=== PATIENT | female | born 2000 | race Caucasian/White ===

== ENCOUNTER → 2021-01-09 | Outpatient (REF) | payer OTHER | LOC: M LAB REF 11:38 | PROVIDERS: ATTEND Physician Assistant Medical | DX: Z11.3 Encounter for screening for infections with a predominantly sexual mode of transmission (principal) ==

== ENCOUNTER 2021-01-16 13:07 | Emergency (ER) | payer OTHER ==
[~2021-01-16] VITALS: Ht 154.9 cm; Wt 60.4 kg
[2021-01-16 15:28] LABS: BASO % 0.5 % (0.0-1.0); EOS # 0.1 10^3/uL (0.0-0.5); EOS % 0.9 % (0.0-3.0); HEMATOCRIT 44.2 % (36.0-47.0); HEMOGLOBIN 14.6 g/dl (12.0-15.5); LYMPH # 2.8 10^3/uL (1.5-5.0); LYMPH % 32.4 % (24.0-44.0); MEAN CORPUSCULAR HEMOGLOBIN 30.4 pg (27.0-33.0); MEAN CORPUSCULAR VOLUME 92.1 fl (80.0-96.0); MONO # 0.5 10^3/uL (0.0-0.8); MONO % 5.5 % (2.0-8.0); NEUTROPHILS # 5.3 10^3/uL (1.5-8.5); NEUTROPHILS % 60.5 % (36.0-66.0); PLATELET COUNT, AUTOMATED 253 10^3/uL (150-450); WHITE BLOOD COUNT 8.7 10^3/uL (4.0-10.0)
[2021-01-16 16:10] LABS: BLOOD UREA NITROGEN 11 MG/DL (7-18); CALCIUM LEVEL 9.7 MG/DL (8.5-10.1); CARBON DIOXIDE LEVEL 27 MEQ/L (21-32); CHLORIDE LEVEL 106 MEQ/L (98-107); CREATININE FOR GFR 0.67 MG/DL (0.55-1.30); GLUCOSE, FASTING 80 MG/DL (70-100); HCG, SERUM QUANTITATIVE < 1.0 MIU/ML; POTASSIUM SERUM 3.8 MEQ/L (3.5-5.1); SODIUM LEVEL 138 MEQ/L (136-145)
--- NOTE | 2021-01-16 17:21 | REP ---
INDICATION: heavy vaginal bleeding x 2 months. COMPARISON: None TECHNIQUE: Transvesical and transvaginal scanning FINDINGS: Uterus measures 5 x 3 x 3 cm. The parenchymal echo pattern is within normal limits. The endometrial echo complex measures between 2 and 5 mm in its greatest thickness. There is no free fluid in cul-de-sac. Right ovary measures 2.5 x 1.9 x 2 cm and is within normal limits. Left ovary measures 2.4 x 1.8 x 2.5 cm and is within normal limits. Urinary bladder measures 7 x 3 x 8 cm. IMPRESSION: Pelvic ultrasound is within normal limits. <Electronically signed by Tye Celeste > 01/16/21 [id number]
[2021-01-16 18:16] VITALS: BP 111/73
== END 2021-01-16 18:30 | disposition home or self-care (01) ==
LOC: M ED 13:07
DX: N93.8 Other specified abnormal uterine and vaginal bleeding (principal); R10.2 Pelvic and perineal pain; F17.200 Nicotine dependence, unspecified, uncomplicated; Z79.3 Long term (current) use of hormonal contraceptives

== ENCOUNTER → 2021-06-14 | Outpatient (REF) | payer OTHER | LOC: M LAB REF 21:29 | PROVIDERS: ATTEND Physician Assistant | DX: N39.0 Urinary tract infection, site not specified (principal) ==

== ENCOUNTER 2022-03-25 18:26 | Emergency (ER) | payer OTHER ==
[~2022-03-25] VITALS: Ht 154.9 cm; Wt 63.5 kg
[2022-03-25 18:27] VITALS: BP 127/68
== END 2022-03-25 20:21 | disposition left against medical advice (07) ==
LOC: M ED 18:26
DX: Z53.29 Procedure and treatment not carried out because of patient's decision for other reasons (principal)

== ENCOUNTER 2023-02-09 00:35 | Emergency (ER) | payer OTHER ==
[2023-02-09 01:13] LABS: APPEARANCE, URINE CLEAR (CLEAR); BACTERIA, URINE AUTO NEGATIVE (NEGATIVE); BILIRUBIN, URINE AUTO NEGATIVE (NEGATIVE); BLOOD, URINE BLOOD NEGATIVE (NEGATIVE); COLOR, URINE STRAW (YELLOW); GLUCOSE, URINE (UA) AUTO NEGATIVE (NEGATIVE); KETONE, URINE AUTO NEGATIVE (NEGATIVE); LEUKOCYTE ESTERASE, URINE AUTO TRACE (NEGATIVE); NITRITE, URINE AUTO NEGATIVE (NEGATIVE); PROTEIN, URINE AUTO NEGATIVE (NEGATIVE); RBC, URINE AUTO 1 /HPF (0-3); SPECIFIC GRAVITY URINE AUTO 1.017 (1.002-1.035); SQUAMOUS EPITHELIAL CELL UR AU 4 /HPF (0-6); UROBILINOGEN, URINE AUTO 0.2 mg/dL (0.0-2.0); WBC, URINE AUTO 1 /HPF (0-3)
[2023-02-09] MEDS ORDERED: KETOROLAC 60MG 2ML VIAL IM ONE (01:55)
[2023-02-09 02:30] LABS: GC DNA AMPLIFICATION NEGATIVE (NEGATIVE)
[2023-02-09] MEDS ORDERED: METR-265 PO (05:24)
[2023-02-09] MEDS ORDERED: metroNIDAZOLE (FLAGYL) 500MG TABLET PO ONE (05:25)
[2023-02-09 05:34] VITALS: BP 141/74; TEMP 98.4; O2SAT 98
== END 2023-02-09 05:37 | disposition home or self-care (01) ==
LOC: M ED 00:35
DX: N76.0 Acute vaginitis (principal)
CPT/HCPCS: 76856; 81001; 87086; 87210; 87661; 87810; 87850; 93976; 96372; 99283; J1885

== ENCOUNTER 2023-07-03 18:56 | Emergency (ER) | payer OTHER ==
[~2023-07-03] VITALS: Ht 154.9 cm; Wt 68.4 kg
[~2023-07-03 18:56] MED LIST: MACR100C43 PO; METR-265 PO; MULTTAB20 PO; ONDA4TAB6 PO
[2023-07-03] MEDS ORDERED: MELA3TAB49 PO (20:29)
[2023-07-03] MEDS ORDERED: NS 1,000 ML IV ONE (21:10)
[2023-07-03 21:54] LABS: BASO # 0.1 10^3/uL (0.0-0.2); BASO % 0.4 % (0.0-1.0); EOS # 0.1 10^3/uL (0.0-0.5); EOS % 0.5 % (0.0-3.0); HEMATOCRIT 34.6 % (36.0-47.0); HEMOGLOBIN 11.6 g/dl (12.0-15.5); LYMPH # 2.8 10^3/uL (1.5-5.0); LYMPH % 21.6 % (24.0-44.0); MEAN CORPUSCULAR HEMOGLOBIN 30.6 pg (27.0-33.0); MEAN CORPUSCULAR HGB CONC 33.5 g/dl (32.0-36.5); MEAN CORPUSCULAR VOLUME 91.3 fl (80.0-96.0); MONO # 0.7 10^3/uL (0.0-0.8); MONO % 5.6 % (2.0-8.0); NEUTROPHILS # 9.3 10^3/uL (1.5-8.5); NEUTROPHILS % 71.5 % (36.0-66.0); PLATELET COUNT, AUTOMATED 241 10^3/uL (150-450); RED BLOOD COUNT 3.79 10^6/uL (4.00-5.40)
[2023-07-03] MEDS ORDERED: NITR1CAP11 PO (22:50)
[2023-07-03 23:03] VITALS: BP 104/62; TEMP 97.5; O2SAT 99
== END 2023-07-03 22:58 | disposition home or self-care (01) ==
LOC: M ED 18:56
DX: O26.892 Other specified pregnancy related conditions, second trimester (principal); R55 Syncope and collapse; O23.92 Unspecified genitourinary tract infection in pregnancy, second trimester; Z79.810 Long term (current) use of selective estrogen receptor modulators (SERMs); Z79.899 Other long term (current) drug therapy

== ENCOUNTER 2023-09-30 00:18 | Outpatient (CLI) | payer OTHER ==
[~2023-09-30] VITALS: Ht 154.9 cm; Wt 72.1 kg
[~2023-09-30 00:18] MED LIST changes: +MELA3TAB49 PO; +NITR1CAP11 PO
[2023-09-30 00:31] VITALS: BP 117/70
[2023-09-30] MEDS ORDERED: HOME MED LIST COMPLETE! XX SCH (00:55)
[2023-09-30] MEDS ORDERED: FAMO20TA PO (00:55)
[2023-09-30] MEDS ORDERED: TUMS500C PO (00:57)
== END 2023-09-30 02:11 | disposition home or self-care (01) ==
LOC: M LDO 00:18
PROVIDERS: ATTEND Obstetrics & Gynecology
DX: O99.893 Other specified diseases and conditions complicating puerperium (principal); N93.0 Postcoital and contact bleeding; Z3A.37 37 weeks gestation of pregnancy
CPT/HCPCS: 59025; 76815; G0463

== ENCOUNTER 2023-10-12 08:55 | Outpatient (CLI) | payer OTHER ==
[~2023-10-12] VITALS: Ht 154.9 cm; Wt 73.9 kg
[~2023-10-12 08:55] MED LIST changes: +FAMO20TA PO; +TUMS500C PO
[2023-10-12 09:26] VITALS: BP 107/64
[2023-10-13] MEDS ORDERED: ACET-897 PO (12:54)
== END 2023-10-12 10:58 | disposition home or self-care (01) ==
LOC: M LDO 08:55
PROVIDERS: ATTEND Obstetrics & Gynecology
DX: O47.1 False labor at or after 37 completed weeks of gestation (principal); Z3A.39 39 weeks gestation of pregnancy; O99.824 Streptococcus B carrier state complicating childbirth; Z79.899 Other long term (current) drug therapy
CPT/HCPCS: 59025; 76815; G0463

== ENCOUNTER 2023-10-13 12:30 | Inpatient (IN) | payer OTHER ==
[~2023-10-13] VITALS: Ht 154.9 cm; Wt 73.7 kg
[2023-10-13] VITALS (13 sets, daily range): BP systolic 112–135; BP diastolic 54–77
[2023-10-13] MEDS ORDERED: ACET-897 PO (12:54)
[2023-10-13] MEDS ORDERED: OXYTOCIN DRIP 30 UNITS in IV 1 EA IV PRN (14:40)
[2023-10-13] MEDS ORDERED: CARBOPROST TROMETHAMINE 250 MCG/ML AMP IM PRN (14:40)
[2023-10-13] MEDS ORDERED: TRANEXAMIC ACID INJection 1,000 MG in NS 100 ML IV PRN (14:40)
[2023-10-13] MEDS ORDERED: LIDOCAINE 1% MDV 20ML VIAL INFIL PRN (14:40)
[2023-10-13] MEDS ORDERED: METHYLERGONOVINE MALEATE 0.2MG/ML 1ML VIAL IM PRN (14:40)
[2023-10-13] MEDS: PENICILLIN G POTASSIUM 5 MU IV 5 MU in D5W MINI-BAG PLUS 100 ML IV STA (15:20)
[2023-10-13] MEDS: LR 1,000 ML IV SCH (15:21)
[2023-10-13 15:27] LABS: HEMATOCRIT 36.8 % (36.0-47.0); HEMOGLOBIN 12.4 g/dl (12.0-15.5); MEAN CORPUSCULAR HEMOGLOBIN 28.8 pg (27.0-33.0); MEAN CORPUSCULAR HGB CONC 33.7 g/dl (32.0-36.5); MEAN CORPUSCULAR VOLUME 85.4 fl (80.0-96.0); PLATELET COUNT, AUTOMATED 215 10^3/uL (150-450); RED BLOOD COUNT 4.31 10^6/uL (4.00-5.40); WHITE BLOOD COUNT 14.2 10^3/uL (4.0-10.0)
[2023-10-13] MEDS: PEN G POT 3,000,000 UNIT/50 ML 3,000,000 UNIT in IV 1 EA IV SCH (19:45)
[2023-10-13] MEDS: OXYTOCIN DRIP 30 UNITS in IV 1 EA IV SCH (20:31)
[2023-10-13] MEDS: BUTORPHANOL 2 MG/ML 1ML VIAL IV ONE (22:07)
[2023-10-13] MEDS: PROMETHAZINE 25MG/ML 1ML VIAL IV ONE (22:07)
[2023-10-13] MEDS: LACTATED RINGER'S 1000 ML IV STA (23:51)
[2023-10-14] VITALS (37 sets, daily range): BP systolic 92–138; BP diastolic 51–72; TEMP 98.7; O2SAT 96–97
[2023-10-14] MEDS ORDERED: ePHEDrine SULFATE 25 MG/5 ML(5MG/ML) SYRINGE IVP PRN (00:30)
[2023-10-14] MEDS ORDERED: LR 500 ML IV PRN ×2 (00:30)
[2023-10-14] MEDS ORDERED: NALOXONE INJ 0.4MG/1ML VIAL IV PRN ×4 (00:30→14:25)
[2023-10-14] MEDS ORDERED: ONDANSETRON 4MG 2ML VIAL IV PRN ×4 (00:30→14:25)
[2023-10-14] MEDS ORDERED: diphenhydrAMINE 50MG/ML VIAL IV PRN ×2 (00:30)
[2023-10-14] MEDS ORDERED: EPIDURAL/PCA KEYS XX PRN ×2 (00:30)
[2023-10-14] MEDS: FENTANYL/ROPIVACAINE/NACL BAG 100 ML EPIDURAL SCH (00:37)
[2023-10-14] MEDS: ePHEDrine SULFATE 25 MG/5 ML(5MG/ML) SYRINGE IVP PRN (02:18)
[2023-10-14] MEDS: LR 1,000 ML IV SCH ×2 (07:40→16:51)
[2023-10-14] MEDS: ceFAZolin SOD 2 GM in IV 1 EA IV ONE (12:46)
[2023-10-14] MEDS: AZITHROMYCIN INJ 500 MG, VIAL MATE ADAPTER 1 EACH in NS 250 ML IV ONE (12:46)
[2023-10-14] MEDS: BICITRA 30ML SOLN UDC PO ONE (12:46)
[2023-10-14] MEDS ORDERED: ONDANSETRON 4MG 2ML VIAL As Ordered ONE (13:19)
[2023-10-14] MEDS ORDERED: PHENYLephrine 500MCG 5ML (100MCG/ML) SYRINGE As Ordered ONE (13:19)
[2023-10-14] MEDS ORDERED: OXYTOCIN 30UNITS IN 0.9% NaCl 500ML IV BAG As Ordered ONE (13:19)
[2023-10-14] MEDS ORDERED: OXYTOCIN INJ 10UNITS/ML 1ML VIAL As Ordered ONE (13:19)
[2023-10-14] MEDS ORDERED: LIDOCAINE 2% W/EPINEPHRINE 20ML VIAL **PRES FREE As Ordered ONE (13:19)
[2023-10-14 13:27] LABS: CORD GAS ABE A -7.2; CORD GAS HCO3 A 21.3 MMOL/L; CORD GAS O2 SAT A 51.4 %; CORD GAS PCO2 A 53.4 mmHg; CORD GAS PH A 7.218 UNITS; CORD GAS PO2 A 23.9 mmHg; CORD GAS SBC A 17.6 MMOL/L; CORD GAS TCO2 A 22.9 MMOL/L
[2023-10-14] MEDS ORDERED: MORPHINE PRES-FREE INJ 10 MG/10 ML VIAL As Ordered ONE (13:29)
[2023-10-14 13:31] LABS: CORD GAS ABE V -6.5; CORD GAS HCO3 V 19.3 MMOL/L; CORD GAS O2 SAT V 51.6 %; CORD GAS PCO2 V 39.5 mmHg; CORD GAS PH V 7.306 UNITS; CORD GAS PO2 V 21.4 mmHg; CORD GAS SBC V 18.1 MMOL/L; CORD GAS TCO2 V 20.5 MMOL/L
[2023-10-14] MEDS ORDERED: KETOROLAC 60MG 2ML VIAL As Ordered ONE (13:44)
[2023-10-14] MEDS ORDERED: fentaNYL 100 MCG/2 ML INJECTION As Ordered ONE (13:46)
[2023-10-14] MEDS ORDERED: propofoL 200 MG/20 ML VIAL As Ordered ONE (13:49)
[2023-10-14] MEDS ORDERED: SIMETHICONE 80MG CHEW TAB PO PRN (14:05)
[2023-10-14] MEDS ORDERED: oxyCODONE 5MG TAB PO PRN ×2 (14:05→14:25)
[2023-10-14] MEDS ORDERED: METHYLERGONOVINE MALEATE 0.2 MG TAB PO PRN (14:05)
[2023-10-14] MEDS ORDERED: MOM 30ML SUSPENSION UDC PO PRN (14:05)
[2023-10-14] MEDS ORDERED: MORPHINE 2 MG/ML 1ML VIAL IV PRN (14:05)
[2023-10-14] MEDS ORDERED: METOCLOPRAMIDE INJ 10MG/2ML VIAL IV PRN ×2 (14:05→14:25)
[2023-10-14] MEDS ORDERED: fentaNYL 100 MCG/2 ML INJECTION IV PRN (14:25)
[2023-10-14] MEDS ORDERED: **NOTE PATIENT COMMENT** MISC XX SCH (14:25)
[2023-10-14] MEDS ORDERED: MEPERIDINE 25 MG/ML 1ML VIAL IV PRN (14:25)
[2023-10-14] MEDS ORDERED: HYDROMORPHONE HCL 0.5 MG/ 0.5 ML SYRINGE IV PRN (14:25)
[2023-10-14] MEDS: SLF 3 ML SYR IV SCH (14:25)
[2023-10-14] MEDS: ACETAMINOPHEN 500 MG TAB PO SCH (19:52)
[2023-10-14] MEDS: KETOROLAC 30 MG/ML 1ML VIAL IV SCH (19:52)
[2023-10-15] MEDS: diphenhydrAMINE 50MG/ML VIAL IV PRN (02:04)
[2023-10-15 07:21] LABS: HEMATOCRIT 25.3 % (36.0-47.0); MEAN CORPUSCULAR HEMOGLOBIN 28.6 pg (27.0-33.0); MEAN CORPUSCULAR HGB CONC 32.8 g/dl (32.0-36.5); MEAN CORPUSCULAR VOLUME 87.2 fl (80.0-96.0); PLATELET COUNT, AUTOMATED 137 10^3/uL (150-450); WHITE BLOOD COUNT 10.1 10^3/uL (4.0-10.0)
[2023-10-15 07:29] LABS: HEMOGLOBIN 8.3 g/dl (12.0-15.5)
[2023-10-15] MEDS: PRENATAL VITAMINS CHEWABLE TABLET PO SCH (07:37)
[2023-10-15] MEDS: diphenhydrAMINE 25MG CAP PO ONE (07:37)
[2023-10-15] MEDS: DOCUSATE SODIUM 100MG CAPSULE PO PRN (07:37)
[2023-10-15 10:00] VITALS: BP 117/55; O2SAT 98
[2023-10-15] MEDS: RHOGAM 300MCG (1500IU) INJ IM SCH (13:34)
[2023-10-15 14:00] VITALS: BP 118/67; O2SAT 98
[2023-10-15] MEDS: IBUPROFEN 800 MG TAB PO SCH (15:36)
[2023-10-15 18:00] VITALS: BP 120/59; O2SAT 98
[2023-10-15 22:00] VITALS: BP 115/54; O2SAT 98
[2023-10-16 02:00] VITALS: BP 128/58; O2SAT 100
[2023-10-16 05:58] VITALS: BP 117/60; O2SAT 100
[2023-10-16] MEDS: MEASLES,MUMPS,RUBELLA VACCINE INJ (MMR-II) SC.IMMUN ONE (09:02)
[2023-10-16] MEDS: oxyCODONE 5MG TAB PO PRN (10:22)
== END 2023-10-16 16:00 | disposition home or self-care (01) | DRG 773 ==
LOC: M LDO 12:30 → M LDI 14:46 → M OBS 10-14 16:10
PROVIDERS: ADMIT Advanced Practice Midwife; ATTEND Advanced Practice Midwife
PROC: 10D00Z1 Extraction of Products of Conception, Low, Open Approach (ICD-10-PCS; principal; 2023-10-14 13:00)
DX: O32.4XX0 Maternal care for high head at term, not applicable or unspecified (principal); Z37.0 Single live birth; Z3A.39 39 weeks gestation of pregnancy; O99.824 Streptococcus B carrier state complicating childbirth; O36.0190 Maternal care for anti-D [Rh] antibodies, unspecified trimester, not applicable or unspecified

== ENCOUNTER 2025-04-25 10:09 | Outpatient (CLI) | payer OTHER ==
[~2025-04-25] VITALS: Ht 154.9 cm; Wt 65.4 kg
[~2025-04-25 10:09] MED LIST changes: +ACET-897 PO; +ACET1TAB55 PO; +NAPR-837 PO; +NITR100C3 PO; -NITR1CAP11 PO; +ONDA-282 PO; -ONDA4TAB6 PO
[2025-04-25 10:34] VITALS: BP 97/60
[2025-04-25 10:35] VITALS: BP 102/61
[2025-04-25 10:37] VITALS: BP 103/60
[2025-04-25 10:56] LABS: APPEARANCE, URINE TURBID (CLEAR); BACTERIA, URINE AUTO 2+ (NEGATIVE); BILIRUBIN, URINE AUTO NEGATIVE (NEGATIVE); BLOOD, URINE BLOOD NEGATIVE (NEGATIVE); GLUCOSE, URINE (UA) AUTO 1+ mg/dL (NEGATIVE); KETONE, URINE AUTO TRACE mg/dL (NEGATIVE); LEUKOCYTE ESTERASE, URINE AUTO 3+ (NEGATIVE); MUCUS, URINE SMALL (NEGATIVE); NITRITE, URINE AUTO NEGATIVE (NEGATIVE); PROTEIN, URINE AUTO 3+ mg/dL (NEGATIVE); RBC, URINE AUTO 7 /HPF (0-3); SPECIFIC GRAVITY URINE AUTO 1.024 (1.002-1.035); SQUAMOUS EPITHELIAL CELL UR AU 61 /HPF (0-6); UROBILINOGEN, URINE AUTO 0.2 mg/dL (0.0-2.0); WBC, URINE AUTO TNTC /HPF (0-3)
[2025-04-25 11:05] LABS: BASO # 0.0 10^3/uL (0.0-0.2); BASO % 0.3 % (0.0-1.0); EOS # 0.0 10^3/uL (0.0-0.5); EOS % 0.4 % (0.0-3.0); LYMPH # 1.8 10^3/uL (1.5-5.0); LYMPH % 17.0 % (24.0-44.0); MONO # 0.6 10^3/uL (0.0-0.8); MONO % 5.3 % (2.0-8.0); NEUTROPHILS # 8.1 10^3/uL (1.5-8.5); NEUTROPHILS % 76.7 % (36.0-66.0); PLATELET COUNT, AUTOMATED 233 10^3/uL (150-450)
[2025-04-25 11:29] LABS: ALT/SGPT 10 U/L (7.0-40); AST/SGOT 13 U/L (<34); CALCIUM LEVEL 8.2 MG/DL (8.5-10.1); CARBON DIOXIDE LEVEL 24 MMOL/L (20-31); CHLORIDE LEVEL 103 MMOL/L (98-107); CREATININE FOR GFR 0.60 MG/DL (0.55-1.30); GLOMERULAR FILTRATION RATE > 90.0 (>60); IRON (FE) 37 UG/DL (50-170); POTASSIUM SERUM 3.7 MMOL/L (3.5-5.1); SODIUM LEVEL 140 MMOL/L (136-145)
[2025-04-25 12:47] LABS: HIV 1&2 SCREEN NEGATIVE (NEGATIVE)
[2025-04-25] MEDS ORDERED: FERR324T21 PO (13:28)
[2025-04-25] MEDS ORDERED: DSS100CA PO (13:28)
[2025-04-25] MEDS: LR 1,000 ML IV ONE (13:46)
[2025-04-25] MEDS: RHOGAM 300MCG (1500IU) INJ IM ONE (13:47)
[2025-04-25 14:11] VITALS: BP 103/51
== END 2025-04-25 15:30 | disposition home or self-care (01) ==
LOC: M LDO 10:09
PROVIDERS: ATTEND Advanced Practice Midwife
DX: O26.893 Other specified pregnancy related conditions, third trimester (principal); O34.211 Maternal care for low transverse scar from previous cesarean delivery; O99.013 Anemia complicating pregnancy, third trimester; O99.343 Other mental disorders complicating pregnancy, third trimester; O99.333 Smoking (tobacco) complicating pregnancy, third trimester; O99.815 Abnormal glucose complicating the puerperium; F41.9 Anxiety disorder, unspecified; R55 Syncope and collapse; F17.210 Nicotine dependence, cigarettes, uncomplicated; D50.9 Iron deficiency anemia, unspecified; Z3A.29 29 weeks gestation of pregnancy; Z67.91 Unspecified blood type, Rh negative
CPT/HCPCS: 36415; 59025; 80053; 81001; 82728; 82950; 83540; 85025; 86780; 86850; 86900; 86901; 87389; 96372; G0463; J2790

== ENCOUNTER → 2025-04-29 | Outpatient (CLI) | payer OTHER ==
[~2025-04-29] MED LIST changes: +DSS100CA PO; +FERR324T21 PO
== END ==
LOC: M LAB 07:29
PROVIDERS: ATTEND Advanced Practice Midwife
DX: O99.810 Abnormal glucose complicating pregnancy (principal); Z3A.00 Weeks of gestation of pregnancy not specified

== ENCOUNTER → 2025-05-16 | Outpatient (CLI) | payer OTHER ==
[2025-05-16 13:52] LABS: PLATELET COUNT, AUTOMATED 245 10^3/uL (150-450)
== END ==
LOC: M PLALAB 09:43
PROVIDERS: ATTEND Obstetrics & Gynecology
DX: O99.019 Anemia complicating pregnancy, unspecified trimester (principal)

== ENCOUNTER 2025-05-20 09:13 | Outpatient (CLI) | payer OTHER ==
[~2025-05-20] VITALS: Ht 154.9 cm; Wt 65.7 kg
[2025-05-20 09:33] VITALS: BP 110/62; O2SAT 100
[2025-05-20 10:16] VITALS: BP 104/55; O2SAT 100
[2025-05-20 10:23] VITALS: BP 108/59; O2SAT 100
== END 2025-05-20 12:00 | disposition home or self-care (01) ==
LOC: M LDO 09:13
PROVIDERS: ATTEND Advanced Practice Midwife
DX: O26.893 Other specified pregnancy related conditions, third trimester (principal); O99.013 Anemia complicating pregnancy, third trimester; O99.343 Other mental disorders complicating pregnancy, third trimester; R42 Dizziness and giddiness; D50.9 Iron deficiency anemia, unspecified; F41.9 Anxiety disorder, unspecified; Z3A.33 33 weeks gestation of pregnancy
CPT/HCPCS: 59025; G0463

== ENCOUNTER 2025-06-09 05:39 | Inpatient (IN) | payer OTHER ==
[~2025-06-09] VITALS: Ht 154.9 cm; Wt 66.7 kg
[2025-06-09] MEDS ORDERED: DOCU100C16 PO (07:50)
[2025-06-09] MEDS ORDERED: FERR32TA PO (07:50)
[2025-06-09] MEDS ORDERED: SERT50TA29 PO (07:50)
[2025-06-09] MEDS ORDERED: ONDA-282 PO (09:38)
[2025-06-28] MEDS: LR 1,000 ML IV SCH (23:45)
[2025-06-29] VITALS (11 sets, daily range): BP systolic 99–120; BP diastolic 53–68; TEMP 97; O2SAT 97–98
[2025-06-29] MEDS ORDERED: TUMS500C PO (05:51)
[2025-06-29] MEDS: LACTATED RINGER'S 1000 ML IV STA (05:52)
[2025-06-29] MEDS ORDERED: HOME MED LIST COMPLETE! XX SCH (05:55)
[2025-06-29 06:08] LABS: PLATELET COUNT, AUTOMATED 240 10^3/uL (150-450)
[2025-06-29 07:11] LABS: HIV 1&2 SCREEN NEGATIVE (NEGATIVE)
[2025-06-29 07:18] LABS: HEPATITIS C VIRUS ABY INDEX < 0.02 INDEX (<0.8)
[2025-06-29] MEDS: ceFAZolin SODIUM 2 GM in DEXTROSE 5% (D5W) ADV/MINI-BAG 50 ML IV ONE (07:24)
[2025-06-29] MEDS: BICITRA 30 ML SOLN UDC PO ONE (07:24)
[2025-06-29] MEDS ORDERED: MORPHINE PRES-FREE INJ 10 MG/10 ML VIAL As Ordered ONE (07:54)
[2025-06-29] MEDS ORDERED: OXYTOCIN 30UNITS IN 0.9% NaCl 500ML IV BAG IV ONE (07:54)
[2025-06-29] MEDS ORDERED: ONDANSETRON 4MG/2ML VIAL As Ordered ONE (07:57)
[2025-06-29] MEDS ORDERED: GLYCOPYRROLATE INJ 0.2 MG/ML 2 ML VIAL As Ordered ONE (08:02)
[2025-06-29] MEDS ORDERED: KETOROLAC 30 MG/ML 1 ML VIAL As Ordered ONE (08:15)
[2025-06-29] MEDS ORDERED: METHYLERGONOVINE MALEATE 0.2 MG/ML 1 ML VIAL IM PRN (08:50)
[2025-06-29] MEDS ORDERED: PERCOCET 5MG/325MG TAB PO PRN (08:50)
[2025-06-29] MEDS ORDERED: ANUSOL HC CREAM 30 GM TOP PRN (08:50)
[2025-06-29] MEDS ORDERED: CALCIUM CARBONATE 500 MG CHEW U/D PO PRN (08:50)
[2025-06-29] MEDS ORDERED: ONDANSETRON 4MG/2ML VIAL IV PRN ×2 (08:50→09:05)
[2025-06-29] MEDS: LR 1,000 ML IV SCH ×2 (08:50→09:05)
[2025-06-29] MEDS ORDERED: MORPHINE 4 MG/ML 1 ML VIAL IV PRN (08:50)
[2025-06-29] MEDS ORDERED: SIMETHICONE 80MG CHEW TAB PO PRN (08:50)
[2025-06-29] MEDS ORDERED: IBUP80TA PO (08:59)
[2025-06-29] MEDS ORDERED: COLA100C5 PO (08:59)
[2025-06-29] MEDS ORDERED: PERCOCET PO (08:59)
[2025-06-29] MEDS ORDERED: **NOTE PATIENT COMMENT** MISC XX SCH (09:05)
[2025-06-29] MEDS ORDERED: HYDROMORPHONE HCL 0.5 MG/0.5 ML SYRINGE IV PRN (09:05)
[2025-06-29] MEDS ORDERED: NALOXONE INJ 0.4 MG/1 ML VIAL IV PRN ×2 (09:05)
[2025-06-29] MEDS: SLF 3 ML SYR IV SCH (09:05)
[2025-06-29] MEDS: OXYTOCIN DRIP 30 UNITS in IV 1 EA IV SCH (09:30)
[2025-06-29] MEDS: diphenhydrAMINE 50 MG/ML VIAL IV PRN (09:30)
[2025-06-29] MEDS: DOCUSATE SODIUM 100 MG CAPSULE PO SCH (10:18)
[2025-06-29] MEDS: PRENATAL VITAMINS CHEWABLE TABLET PO SCH (10:18)
[2025-06-29] MEDS: FERROUS SULFATE 325 MG TAB PO SCH (10:18)
[2025-06-29] MEDS: KETOROLAC 30 MG/ML 1 ML VIAL IV SCH (15:11)
[2025-06-30 02:00] VITALS: BP 101/53; O2SAT 98
[2025-06-30 05:50] VITALS: BP 99/54; O2SAT 97
[2025-06-30 07:06] LABS: PLATELET COUNT, AUTOMATED 193 10^3/uL (150-450)
[2025-06-30] MEDS: diphenhydrAMINE 50 MG/ML VIAL IV PRN (09:57)
[2025-06-30 10:00] VITALS: BP 106/57; O2SAT 98
[2025-06-30] MEDS: IBUPROFEN 800 MG TAB PO SCH (11:24)
[2025-06-30] MEDS: RHOGAM 300MCG (1500IU) INJ IM SCH (11:59)
[2025-06-30 14:20] VITALS: BP 112/53; O2SAT 98
[2025-06-30 18:00] VITALS: BP 110/55; O2SAT 99
[2025-06-30 22:00] VITALS: BP 103/55; O2SAT 98
[2025-07-01 02:00] VITALS: BP 106/59; O2SAT 98
[2025-07-01] MEDS: ACETAMINOPHEN 500 MG TAB PO PRN (02:48)
[2025-07-01 06:00] VITALS: BP 112/61; O2SAT 99
[2025-07-01] MEDS ORDERED: MEASLES,MUMPS,RUBELLA VACCINE INJ (MMR-II) SC.IMMUN ONE (09:00)
[2025-07-01 10:00] VITALS: BP 113/62; O2SAT 98
[2025-07-01] MEDS: PERCOCET 5MG/325MG TAB PO PRN (10:10)
[2025-07-01] MEDS: medroxyPROGESTERone ACET IM SUSP 150 MG/ML VIAL IM ONE (11:34)
== END 2025-07-01 12:05 | disposition home or self-care (01) | DRG 773 ==
LOC: M LDI 06-29 05:24 → EDSTATUS 06-29 07:30 → M OBS 06-29 10:05
PROVIDERS: ADMIT Obstetrics & Gynecology; ATTEND Obstetrics & Gynecology
PROC: 10D00Z1 Extraction of Products of Conception, Low, Open Approach (ICD-10-PCS; principal; 2025-06-29 07:30)
DX: O34.211 Maternal care for low transverse scar from previous cesarean delivery (principal); Z3A.39 39 weeks gestation of pregnancy; Z37.0 Single live birth

== ENCOUNTER → 2025-06-14 | Outpatient (REF) | payer OTHER ==
[~2025-06-14] MED LIST changes: +DOCU100C16 PO; +FERR32TA PO; +SERT50TA29 PO
== END ==
LOC: M SFHCWAGY 16:43
PROVIDERS: ATTEND Advanced Practice Midwife
DX: Z34.83 Encounter for supervision of other normal pregnancy, third trimester (principal)